=== PATIENT | female | born 1950 | race Two or more races ===

== ENCOUNTER → 2016-07-02 | Outpatient (CLI) | payer MEDICARE, BC ==
[~2016-07-02] MED LIST: ATORVASTATIN CA10 MG PO; ATORVASTATIN CA20 MG ORAL; BISACODYL5 MG ORAL; CITRACAL-VIT D1 EACH PO; CITRUCEL500 MG PO; CO Q-10100 M1 PO; FISH OIL + D31 EACH PO; GREEN TEA1 EACH PO; LEXAPRO20 MG PO; MAGNESIUM200 M1 PO; MULTIVITAMINS1 EAC2 ORAL; NEXIUM40 MG PO; OMEGA 3 1,0001 EACH PO; PROTONIX40 MG ORAL; PROZAC40 MG ORAL; PYRIDOXINE HCL50 MG ORAL; QUETIAPINE FUMA25 MG PO; SEROQUEL50 MG ORAL; SIMVASTATIN20 MG ORAL; VITA-C120 GM PO; VITAMIN B COMP1 EAC2 ORAL; VITAMIN D31000 UNI2 PO; VITAMIN E200 UNIT PO; VITAMIN E400 UNIT PO
[2016-07-02 14:16] VITALS: BP 108/70
--- NOTE | 2016-07-02 14:38 | GI Progress Note ---
Assessment/Plan Problems: (1) Small intestinal bacterial overgrowth ICD Codes: K63.89 - Other specified diseases of intestine SNOMED: 369375440 (2) GERD (gastroesophageal reflux disease) ICD Codes: K21.9 - Gastro-esophageal reflux disease without esophagitis SNOMED: 523793145 (3) Diarrhea ICD Codes: R19.7 - Diarrhea SNOMED: 48537515 (4) Gastric polyp ICD Codes: K31.7 - Polyp of stomach and duodenum SNOMED: 92784999 (5) Colonic polyp ICD Codes: K63.5 - Polyp of colon SNOMED: 41034658 Status: stable Status Narrative Seen with Dr. Henry. Assessment/Plan ordered [place] CT rx amitiza 24 BID recommend Align probiotic RTC s/p imaging studies Subjective Subjective wt loss -13lbs Objective Last 24 Hour Vital Signs Date Time Temp Pulse Resp B/P Pulse Ox O2 Delivery O2 Flow Rate FiO2 07/02/16 14:16 98.3 93 108/70 General Appearance: no apparent distress, alert Cardiovascular: normal rate Respiratory/Chest: normal breath sounds, no respiratory distress Abdominal Exam: normal bowel sounds, non tender Extremities: normal range of motion Maddie Paulino N.P. Jul 02, 2016 14:38
== END | disposition home or self-care (01) ==
LOC: PAN 14:06
DX: K21.9 Gastro-esophageal reflux disease without esophagitis (principal); A04.8 Other specified bacterial intestinal infections; R19.7 Diarrhea, unspecified; K31.7 Polyp of stomach and duodenum; K63.5 Polyp of colon
CPT/HCPCS: 99211

== ENCOUNTER 2017-06-24 14:08 | Outpatient (CLI) | payer MEDICARE, BC ==
--- NOTE | 2017-06-24 15:50 | GI Progress Note ---
Assessment/Plan Problems: (1) Small intestinal bacterial overgrowth ICD Codes: K63.89 - Other specified diseases of intestine SNOMED: 966583824 (2) GERD (gastroesophageal reflux disease) ICD Codes: K21.9 - Gastro-esophageal reflux disease without esophagitis SNOMED: 770573214 (3) Diarrhea ICD Codes: R19.7 - Diarrhea SNOMED: 68989979 Status: stable Status Narrative Seen with Dr. Henry. Assessment/Plan refused [facility] CT rx Xifaxin, amitiza needs repeat colonoscopy 04/2018 Subjective Subjective abdominal pain constipation abdominal bloating Objective General Appearance: WD/WN, no apparent distress, alert Cardiovascular: normal rate Respiratory/Chest: normal breath sounds, no respiratory distress Abdominal Exam: normal bowel sounds, non tender, soft Extremities: normal range of motion, non-tender Maddie Paulino N.P. Jun 24, 2017 15:49
== END 2017-06-24 14:42 | disposition home or self-care (01) ==
LOC: PAN 14:08
DX: K21.9 Gastro-esophageal reflux disease without esophagitis (principal); R19.7 Diarrhea, unspecified; K63.89 Other specified diseases of intestine
CPT/HCPCS: 99212

== ENCOUNTER 2018-01-06 13:03 | Outpatient (CLI) | payer MEDICARE, BC ==
[2018-01-06 13:30] VITALS: BP 112/72
--- NOTE | 2018-01-07 09:12 | GI Progress Note ---
Assessment/Plan Problems: (1) Constipation ICD Codes: K59.00 - Constipation, unspecified SNOMED: 73244528 (2) Small intestinal bacterial overgrowth ICD Codes: K63.89 - Other specified diseases of intestine SNOMED: 867997246 (3) GERD (gastroesophageal reflux disease) ICD Codes: K21.9 - Gastro-esophageal reflux disease without esophagitis SNOMED: 922632863 (4) Depression ICD Codes: F32.9 - Depression SNOMED: 14404664 Status: stable Status Narrative Seen with Dr. Henry. Assessment/Plan Rx Cezar Luna VSL #3 RTC x 3 months repeat colonoscopy 04/2018 The patient was seen and examined at bedside and all new and available data was reviewed in the patients chart. I agree with the above findings, impression and plan. (Patient seen earlier today. Signature stamp does not reflect patient encounter time.). - Beka Henry MD Subjective Gastrointestinal/Abdominal: Reports: abdomen distended, constipated, other - abdominal bloating Objective Last 24 Hour Vital Signs Date Time Temp Pulse Resp B/P (MAP) Pulse Ox O2 Delivery O2 Flow Rate FiO2 01/06/18 13:30 98.2 67 16 112/72 98 98.2 General Appearance: WD/WN, no apparent distress, alert Cardiovascular: normal rate Respiratory/Chest: normal breath sounds, no respiratory distress Abdominal Exam: normal bowel sounds, non tender, soft Extremities: normal range of motion, non-tender Faheem Paulino BAR HELPER Jan 07, 2018 09:12
== END 2018-01-06 13:33 | disposition home or self-care (01) ==
LOC: PAN 13:03
DX: K59.00 Constipation, unspecified (principal); K63.89 Other specified diseases of intestine; K21.9 Gastro-esophageal reflux disease without esophagitis; F32.9 Major depressive disorder, single episode, unspecified; R14.0 Abdominal distension (gaseous)
CPT/HCPCS: G0463

== ENCOUNTER 2018-02-24 14:17 | Outpatient (CLI) | payer MEDICARE, BC ==
--- NOTE | 2018-02-25 14:03 | GI Initial Consult Note ---
History of Present Illness General Date patient seen: Feb 24, 2018 Time patient seen: 13:57 Reason for Consultation: EGD/colonoscopy Present Illness HPI 68 year old female patient known to us, with history of chronic GERD and constipation presents today with c/o of unrelieved pain and symptoms. In addition, she has complaint of unrelieved abdominal bloating. Her last colonoscopy was performed in 2012. Denies any unintentional weight loss or changes in dietary habits. No signs of abuse or neglect. Patient is not fall risk. Home Meds Reported Medications Pyridoxine Hcl* (VITAMIN B-6*) 50 Mg Tablet, 100 MG ORAL DAILY, TAB 0 Refills 01/08/16 [place]-3 Fatty Acids/Fish Oil (OMEGA 3 1,000 MG SOFTGEL) 1 Each Capsule, 1 EACH PO DAILY, CAP 01/08/16 Cholecalciferol (Vitamin D3) (VITAMIN D3) 1,000 Unit Tablet, 1000 UNIT PO BID, TAB 01/08/16 Atorvastatin Calcium* (ATORVASTATIN CALCIUM*) 20 Mg Tablet, 10 MG ORAL BEDTIME, TAB 01/08/16 Methylcellulose (CITRUCEL) 500 Mg Tablet, 500 MG PO BID, TAB 01/08/16 Fluoxetine Hcl* (PROZAC*) 40 Mg Capsule, 40 MG ORAL DAILY, CAP 01/08/16 Vitamin B Complex (VITAMIN B COMPLEX) 1 Each Capsule, 1 CAP ORAL DAILY, CAP 0 Refills 10/24/14 Ubidecarenone (CO Q-10) 100 Mg Capsule, 100 MG PO DAILY, CAP 10/24/14 Vitamin E* (VITAMIN E*) 400 Unit Capsule, 400 UNIT PO DAILY, CAP 10/24/14 Multivitamins* (MULTIVITAMINS*) 1 Each Tablet, 1 TAB ORAL DAILY, TAB 0 Refills 10/24/14 Simvastatin (ZOCOR) 20 Mg Tablet, 20 MG ORAL BEDTIME, TAB 10/24/14 Pantoprazole* (PROTONIX*) 40 Mg Tablet.dr, 40 MG ORAL QOD, TAB 10/24/14 Ascorbic Acid (DI-C) 120 Gm Crystals, 1000 MG PO DAILY 04/04/13 Quetiapine Fumarate* (SEROQUEL*) 25 Mg Tablet, 150 MG PO QHS, TAB 04/04/13 Med list reviewed/reconciled: Yes Allergies: Uncoded Allergies: ADHESIVE TAPE (Allergy, Mild, SKIN BECOMES RED., 04/17/13) Patient History History Provided By: Patient, Medical Record PMH Narrative HLD Hemorrhoids Anxiety Depression Arthritis Past Surgical History: R Knee replacement Inguinal Hernia Repair Social History: Reports: smoking, alcohol use Review of Systems All Other Systems: negative except mentioned in HPI Physical Exam Sp02 EP Interpretation: reviewed, normal General Appearance: well appearing, no apparent distress, alert Head: normocephalic EENT: PERRL/EOMI, normal ENT inspection Neck: supple Respiratory: normal breath sounds, no respiratory distress Cardiovascular: normal rate Gastrointestinal: normal inspection, non tender, soft, normal bowel sounds, non -distended Rectal: deferred Genitourinary: no CVA tenderness Musculoskeletal: normal inspection, back normal Neurologic: normal inspection, alert, oriented x3, responsive Psychiatric: normal inspection, judgement/insight normal, memory normal Skin: normal inspection, normal color, no rash, warm/dry, palpation normal, well hydrated Lymphatic: normal inspection, no adenopathy GI: Plan Problems: (1) Small intestinal bacterial overgrowth (2) GERD (gastroesophageal reflux disease) (3) Depression (4) Constipation (5) Diarrhea Plan EGD/colonoscopy scheduled 03/02/18. - CLD & (Nulytely/Suprep/Movi-Prep) prep instructions given and acknowledged by patient. - NPO @ [place] day prior procedure explained. will follow with additional recs post procedure. Seen with Dr. Henry. Thank you for this patient referral. The patient was seen and examined at bedside and all new and available data was reviewed in the patients chart. I agree with the above findings, impression and plan. (Patient seen earlier today. Signature stamp does not reflect patient encounter time.). - MD Lora Bradford,[facility] Center[facility] ESCALATOR SERVICE MECHANIC Feb 25, 2018 14:03
== END 2018-02-24 14:47 | disposition home or self-care (01) ==
LOC: PAN 14:17
DX: A04.9 Bacterial intestinal infection, unspecified (principal); K21.9 Gastro-esophageal reflux disease without esophagitis; F32.9 Major depressive disorder, single episode, unspecified; K59.00 Constipation, unspecified; R19.7 Diarrhea, unspecified; E78.5 Hyperlipidemia, unspecified; F41.9 Anxiety disorder, unspecified; M19.90 Unspecified osteoarthritis, unspecified site; R14.0 Abdominal distension (gaseous)
CPT/HCPCS: G0463

== ENCOUNTER 2018-03-02 08:56 | Day surgery (SDC) | payer MEDICARE, BC ==
[~2018-03-02] VITALS: Ht 154.9 cm; Wt 49.0 kg
[2018-03-02] VITALS (7 sets, daily range): BP systolic 92–119; BP diastolic 60–71
--- NOTE | 2018-03-02 09:46 | Pre-Procedure Note/Attestation ---
Pre-Procedure Note/Attestation Complete Prior to Procedure Planned Procedure: not applicable Procedure Narrative: esophagogastroduodenoscopy and colonoscopy Indications for Procedure Pre-Operative Diagnosis: screening colon, GERD Attestation I attest that I discussed the nature of the procedure; its benefits; risks and complications; and alternatives (and the risks and benefits of such alternatives ), prior to the procedure, with the patient (or the patient's legal ocean import representative). I attest that, if there was a reasonable possibility of needing a blood transfusion, the patient (or the patient's legal ocean import representative) was given the [facility] standardized written summary, pursuant to the [place] Blood Safety Act ([place] Health and Safety Code # 1645, as amended). I attest that I re-evaluated the patient just prior to the surgery and that there has been no change in the patient's H&P, except as documented below: Beka Henry MD Mar 02, 2018 09:46
--- NOTE | 2018-03-02 09:47 | Short Stay Surgery H&P ---
History of Present Illness History of Present Illness Chief Complaint please see recent office note HPI Nisha Diallo is a 68 year old female who was admitted on for Gerd,Constipation Patient History Allergies: Uncoded Allergies: ADHESIVE TAPE (Allergy, Intermediate, 03/02/18) SKIN BECOMES RED. Medication History Scheduled Cholecalciferol (Vitamin D3) (Vitamin D3), 1,000 UNIT PO BID, (Reported) Fluoxetine Hcl* (Prozac*), 40 MG ORAL DAILY, (Reported) Multivitamins* (Multivitamins*), 1 TAB ORAL DAILY, (Reported) [place]-3 Fatty Acids/Fish Oil ([place] 3 1,000 Mg Softgel), 1 EACH PO DAILY, ( Reported) Pantoprazole* (Protonix*), 40 MG ORAL QOD, (Reported) Pyridoxine Hcl* (Vitamin B-6*), 100 MG ORAL DAILY, (Reported) Quetiapine Fumarate* (Seroquel*), 100 MG PO QHS, (Reported) Simvastatin (Zocor), 20 MG ORAL BEDTIME, (Reported) Ubidecarenone (Co Q-10), 100 MG PO DAILY, (Reported) Vitamin B Complex (Vitamin B Complex), 1 CAP ORAL DAILY, (Reported) Vitamin E* (Vitamin E*), 400 UNIT PO DAILY, (Reported) Discontinued Medications Ascorbic Acid (Michelle-C), 1,000 MG PO DAILY, (Reported) Discontinued Reason: Pt stopped taking med Atorvastatin Calcium* (Atorvastatin Calcium*), 10 MG ORAL BEDTIME, (Reported) Discontinued Reason: Pt stopped taking med Methylcellulose (Citrucel), 500 MG PO BID, (Reported) Discontinued Reason: Pt stopped taking med Physical Exam Vital Signs Last Vital Signs Date Time Temp Pulse Resp B/P (MAP) Pulse Ox O2 Delivery O2 Flow Rate FiO2 03/02/18 09:22 Room Air 03/02/18 09:21 97.7 71 18 119/60 100 Plan Attestation Are the patient's medical conditions optimized for surgery? Beka Henry MD Mar 02, 2018 09:47
--- NOTE | 2018-03-02 10:15 | Anethesia Preoperative Eval ---
Anesthesia Pre-op PMH/ROS General Date of Evaluation: Mar 02, 2018 Time of Evaluation: 10:15 Anesthesiologist: Zelda Benito CRNA ASA Score: ASA 2 Mallampati Score Class I : Soft palate, uvula, fauces, pillars visible Class II: Soft palate, uvula, fauces visible Class III: Soft palate, base of uvula visible Class IV: Only hard plate visible Mallampati Classification: Class II Surgeon: Carl Diagnosis: GERD, constipation Surgical Procedure: Colonoscopy Anesthesia History: none Family History: no anesthesia problems Allergies: Uncoded Allergies: ADHESIVE TAPE (Allergy, Intermediate, 03/02/18) SKIN BECOMES RED. Medications: see eMAR Patient NPO?: Yes NPO Date: Mar 02, 2018 NPO Time: 00:00 Past Medical History Cardiovascular: Reports: other - hypercholesterolemia; Denies: HTN, CAD, OR, valve dz, arrhythmia Pulmonary: Denies: asthma, COPD, SAHRA, other Gastrointestinal/Genitourinary: Reports: GERD, other - conspitation, colon polyps, hemorrhoids,; Denies: CRI, ESRD Neurologic/Psychiatric: Reports: depression/anxiety; Denies: dementia, CVA, TIA, other Endocrine: Denies: DM, hypothyroidism, steroids, other Musculoskeletal/Integumentary: Reports: OA, DJD - as above PSxH Narrative: RIGHT TKR, spleenectomy, oopherectomy Anesthesia Pre-op Phys. Exam Physician Exam Last Vital Signs Date Time Temp Pulse Resp B/P (MAP) Pulse Ox O2 Delivery O2 Flow Rate FiO2 03/02/18 09:22 Room Air 03/02/18 09:21 97.7 71 18 119/60 100 Constitutional: NAD Neurologic: CN 2-12 intact Cardiovascular: RRR Respiratory: CTA Gastrointestinal: S/NT/ND Airway Exam Mallampati Score: Class II MO: full Neck: limited TMD: > 3 FB ROM: full Teeth: intact Dentures: no upper, no lower Anesthesia Pre-op A/P Studies Pre-op Studies: EKG - NSR Risk Assessment & Plan Assessment: ASA 2 ok to proceed Plan: MAC Status Change Before Surgery: No Pre-Antibiotics Given Within 1 Hr of Incision: Zelda Sales CRNA Mar 02, 2018 10:15
[2018-03-02] MEDS ORDERED: Lidocaine 1% MPF 10mg/ml 5ml ONE (11:01)
[2018-03-02] MEDS ORDERED: Propofol 200mg/20ml IV ONE (11:01)
--- NOTE | 2018-03-02 11:55 | Endoscopy Procedure Note ---
Endoscopy Procedure Note General Indication for Procedure: screening colon, gerd Procedures Performed: EGD, colonoscopy Operative Findings/Diagnosis: 3 polyps Specimen: yes Pt Tolerated Procedure Well: Yes Estimated Blood Loss: none Anesthesia Anesthesiologist: jean Anesthesia: MAC Inserted Devices Implant(s) used?: No Quality Quality of Bowel Preparation: Good Did scope reach the cecum?: Yes Was there any complications?: No GI Core Measures 50 yrs or older w/o bx or poly: No 10yrs. F/U not recommended: Yes If not recommended, why?: Above average risk 10 yrs. F/U needed: Yes 18 years or older w/prev. colo: Yes <3yrs. since last colonoscopy: No Beka Henry MD Mar 02, 2018 11:55
--- NOTE | 2018-03-02 12:04 | Immediate Post-Op Evaluation ---
Immediate Post-Op Evalulation Immediate Post-Op Evalulation Procedure: EGD, colonoscopy, polypectomy Date of Evaluation: Mar 02, 2018 Time of Evaluation: 11:55 IV Fluids: 0.9 NS 300 ml Blood Pressure Systolic: 095 Blood Pressure Diastolic: 65 Pulse Rate: 78 Respiratory Rate: 20 O2 Sat by Pulse Oximetry: 97 Temperature (Fahrenheit): 97.2 Pain Score (1-10): 0 Nausea: No Vomiting: No Complications none Patient Status: awake, reacts, patent Hydration Status: adequate Given Within 1 Hr of Incision: Zelda Sales CRNA Mar 02, 2018 12:04
--- NOTE | 2018-03-02 17:45 | Procedure Note ---
DATE OF PROCEDURE: 03/02/2018 SURGEON: Beka Henry M.D. ANESTHESIOLOGIST: Zelda GAMBOA. PROCEDURE: Upper endoscopy with biopsy and colonoscopy with snare polypectomy and biopsy. ANESTHESIA: Per Zelda GAMBOA. INSTRUMENT: Olympus adult flexible upper endoscope and colonoscope. INDICATION: Screening colonoscopy evaluation, chronic GERD, abdominal pain. The procedure, risks, benefits, and possible consequences, including hemorrhage, aspiration, perforation and infection, and alternative treatments, were explained to the patient/legal guardian by Dr. Beka Henry and the patient/legal guardian understood and accepted these risks. DESCRIPTION OF PROCEDURE: After informed consent was obtained and the patient was adequately sedated, Olympus upper endoscope was advanced from the mouth into the second portion of the duodenum and retroflexion was performed in the stomach. The patient had evidence of diffuse gastritis. Random biopsy from antrum and body was obtained to rule out H. pylori infection. The rest of the upper endoscopic examination grossly looked within normal limits. At this time, the upper endoscope was retrieved. The patient was turned over for colonoscopy. First, rectal exam was performed which was positive for internal hemorrhoids. Then, the scope was advanced from the rectum into the cecum documented by the appendix orifice, ileocecal valve, and right upper quadrant palpation. Quality of prep was very good. The patient had a total of 3 polyps, one diminutive polyp in the ascending colon, one about 6 mm polyp in the transverse colon removed with cold snare polypectomy technique. Another smaller polyp of about 4 mm in the sigmoid colon removed with snare polypectomy technique. The patient had some scattered diverticulosis in the left colon, maybe 3 or 4 of them. Retroflexion in the rectum showed evidence of small nonbleeding internal hemorrhoids. SUMMARY OF FINDINGS: 1. Gastritis, status post biopsy. 2. Three colonic polyps removed, see above for details. 3. Internal hemorrhoids. 4. Scattered diverticulosis. RECOMMENDATIONS: 1. Follow up biopsy results and treat accordingly. 2. Given 3 polyps, we recommend repeat colonoscopy in three years. Beka Henry M.D. DR: Viri JOB#: [id number] CC:
[2018-03-03 10:36] VITALS: BP 99/63
--- NOTE | 2018-03-03 10:36 | 48 Hour Post Anesthesia Eval ---
Post Anesthesia Evaluation Procedure: EGD, colonoscopy, polypectomy Date of Evaluation: Mar 02, 2018 Time of Evaluation: 12:50 Blood Pressure Systolic: 99 0: 63 Pulse Rate: 73 Respiratory Rate: 17 Temperature (Fahrenheit): 98.0 O2 Sat by Pulse Oximetry: 95 Airway: patent Nausea: No Vomiting: No Pain Intensity: 0 Cardiopulmonary Status: stable Mental Status/LOC: patient returned to baseline Follow-up Care/Observations: per GI Post-Anesthesia Complications: none Follow-up care needed: ready to discharge Zelda Benito CRNA Mar 03, 2018 10:36
== END 2018-03-02 12:50 | disposition home or self-care (01) ==
LOC: GAS 08:56
DX: Z12.11 Encounter for screening for malignant neoplasm of colon (principal); D12.5 Benign neoplasm of sigmoid colon; K64.8 Other hemorrhoids; K57.30 Diverticulosis of large intestine without perforation or abscess without bleeding; Z86.010 Personal history of colon polyps; K21.9 Gastro-esophageal reflux disease without esophagitis; K29.50 Unspecified chronic gastritis without bleeding; E78.00 Pure hypercholesterolemia, unspecified; F32.9 Major depressive disorder, single episode, unspecified; F41.9 Anxiety disorder, unspecified; M19.90 Unspecified osteoarthritis, unspecified site; Z90.81 Acquired absence of spleen; Z90.721 Acquired absence of ovaries, unilateral; Z96.651 Presence of right artificial knee joint
CPT/HCPCS: 43239; 45385; J2704; 94003; 94150

== ENCOUNTER 2018-03-21 12:57 | Outpatient (CLI) | payer MEDICARE, BC ==
[2018-03-21 13:18] VITALS: BP 101/70
--- NOTE | 2018-03-21 14:09 | GI Progress Note ---
Assessment/Plan Problems: (1) Gastritis ICD Codes: K29.70 - Gastritis, unspecified, without bleeding SNOMED: 8752810 (2) Constipation ICD Codes: K59.00 - Constipation, unspecified SNOMED: 54100028 (3) GERD (gastroesophageal reflux disease) ICD Codes: K21.9 - Gastro-esophageal reflux disease without esophagitis SNOMED: 804820135 Status: stable Status Narrative Seen with Dr. Henry. Assessment/Plan SUMMARY OF FINDINGS reviewed with patient: 1. Gastritis, status post biopsy. >> negative for H. Pylori 2. Three colonic polyps removed, see above for details. 3. Internal hemorrhoids. 4. Scattered diverticulosis. RECOMMENDATIONS: 1. Follow up biopsy results and treat accordingly. >> unremarkable 2. Given 3 polyps, we recommend repeat colonoscopy in five years. PPI daily cont Dulcolax RTC prn or 6 months. The patient was seen and examined at bedside and all new and available data was reviewed in the patients chart. I agree with the above findings, impression and plan. (Patient seen earlier today. Signature stamp does not reflect patient encounter time.). - Beka Henry MD Subjective Subjective constipation, takes dulcolax Objective Last 24 Hour Vital Signs Date Time Temp Pulse Resp B/P (MAP) Pulse Ox O2 Delivery O2 Flow Rate FiO2 03/21/18 13:18 98.0 75 101/70 96 General Appearance: WD/WN, no apparent distress, alert Cardiovascular: normal rate Respiratory/Chest: normal breath sounds, no respiratory distress Abdominal Exam: normal bowel sounds, non tender, soft Extremities: normal range of motion, non-tender Faheem Paulino SKOOG MACHINE OPERATOR Mar 21, 2018 14:09
== END 2018-03-21 13:27 | disposition home or self-care (01) ==
LOC: PAN 12:57
DX: K29.70 Gastritis, unspecified, without bleeding (principal); K59.00 Constipation, unspecified; K21.9 Gastro-esophageal reflux disease without esophagitis; K64.8 Other hemorrhoids; K57.90 Diverticulosis of intestine, part unspecified, without perforation or abscess without bleeding
CPT/HCPCS: 99212